=== PATIENT | female | born 1990 | race Caucasian/White ===

== ENCOUNTER 2017-06-27 11:45 | Emergency (ER) | payer OTHER ==
[2017-06-27 11:54] VITALS: BP 96/76
[2017-06-27 12:12] LABS: BILIRUBIN,URINE NEGATIVE (NEGATIVE); GLUCOSE, URINE (UA) NEGATIVE (NEGATIVE); KETONES,URINE (UA) NEGATIVE (NEGATIVE); LEUKOCYTE ESTERASE, URINE NEGATIVE (NEGATIVE); NITRITE,URINE NEGATIVE (NEGATIVE); OCCULT BLOOD,URINE NEGATIVE (NEGATIVE); PROTEIN,URINE NEGATIVE (NEGATIVE); UROBILINOGEN,URINE 0.2 (NORMAL) E.U./dL (NORMAL)
[2017-06-27 12:13] LABS: CLARITY,URINE CLEAR (CLEAR)
[2017-06-27 13:15] LABS: HCG UR QUAL NEGATIVE
--- NOTE | 2017-06-27 13:18 | ED Physician Documentation ---
PD HPI FEMALE - Stated complaint Stated Complaint: FEMALE /DIZZY,FEVER,CHEST CONGESTION - Chief complaint Chief Complaint: Abd Pain - History obtained from History obtained from: Patient - History of Present Illness Timing - onset: Other (She has had foul-smelling urine and vaginal discharge for the last week with mild pelvic pain. She is sexually active with a single partner for the last 2 months. She also has chest congestion and sinus drainage without fevers.) Review of Systems Constitutional: denies: Fever, Chills, Fatigue Nose: reports: Rhinorrhea / runny nose, Congestion, Sinus pressure / pain Throat: reports: Sore throat Respiratory: reports: Dyspnea, Cough GI: denies: Abdominal Pain PD PAST MEDICAL HISTORY - Present Medications Home Medications: Ambulatory Orders Medication Instructions Recorded Confirmed Albuterol Sulfate [Proventil Hfa 1 - 2 puffs IH Q4H PRN #1 06/27/17 Inhaler] [email or web address] Cetirizine HCl 10 mg PO DAILY 06/27/17 06/27/17 Metronidazole [Flagyl] 500 mg PO BID #14 tablet 06/27/17 Ondansetron [Ondansetron Odt] 4 mg PO TID PRN 06/27/17 06/27/17 guaiFENesin/CODEINE [Robitussin AC] 5 - 10 ml PO Q6H PRN #120 ml 06/27/17 - Allergies Allergies/Adverse Reactions: Allergies Allergy/AdvReac Type Severity Reaction Status Date / Time latex Allergy Rash Verified 06/27/17 11:53 PD ED PE NORMAL - Vitals Vital signs reviewed: Yes - General General: Alert and oriented X 3, No acute distress - HEENT HEENT: PERRL, Ears normal, Pharynx benign - Neck Neck: Supple, no meningeal sign, No bony TTP - Cardiac Cardiac: RRR, No murmur - Respiratory Respiratory: No respiratory distress, Other (Wheezy throughout without focal findings) - Abdomen Abdomen: Non tender - Female Female : [employer] present (Kayce Rivera RN), Other (Cervicitis but no cervical motion tenderness, moderate whitish to yellow discharge. No bimanual tenderness.) - Back Back: No CVA TTP, No spinal TTP - Neuro Neuro: Alert and oriented X 3, Normal speech - Psych Psych: Normal mood, Normal affect Results - Vitals Vitals: Vital Signs - 24 hr 06/27/17 11:49 Temperature 35.8 C L Heart Rate 52 L Respiratory 18 Rate Blood Pressure 96/76 O2 Saturation 100 Oxygen O2 Source Room air - Labs Labs: Microbiology 06/27/17 13:30 Wet Prep - Final Genital - Vaginal Laboratory Tests 06/27/17 06/27/17 11:55 11:55 Urine Color YELLOW Urine Clarity CLEAR Urine pH 6.0 Ur Specific [place] 1.015 1.015 Urine Protein NEGATIVE Urine Glucose (UA) NEGATIVE Urine Ketones NEGATIVE Urine Occult Blood NEGATIVE Urine Nitrite NEGATIVE Urine Bilirubin NEGATIVE Urine Urobilinogen 0.2 (NORMAL) Ur Leukocyte Esterase NEGATIVE Ur Microscopic Review NOT INDICATED Urine Culture Comments NOT INDICATED Urine HCG, Qual NEGATIVE Departure - Departure Disposition: Home, Self Care Clinical Impression: Bacterial vaginosis Condition: Good Record reviewed to determine appropriate education?: Yes Instructions: ED Vaginosis Bacterial Prescriptions: Albuterol Sulfate [Proventil Hfa Inhaler] 1 - 2 puffs IH Q4H PRN #1 [email or web address] PRN Reason: Cough guaiFENesin/CODEINE [Robitussin AC] 5 - 10 ml PO Q6H PRN #120 ml PRN Reason: Cough Metronidazole [Flagyl] 500 mg PO BID #14 tablet Comments: Call your doctor to arrange a follow-up appointment, make the next available appointment. In the interim, return anytime if worse or if new symptoms develop. If your STD tests are positive, we will call you in approximately 2-3 days time.
--- NOTE | 2017-06-27 18:38 | ED Physician Documentation ---
ED Addendum - Addendum Addendum: 06/27/17 18:38 Took call from pharmacy noting that she is on Suboxone for something and requested substitution for the codeine cough syrup and I told him to substitute Tessalon 200 mg [place], 1 p.o. every 6 as needed cough #20 no refills.
== END 2017-06-27 13:58 | disposition home or self-care (01) ==
LOC: ED 11:45
DX: N76.0 Acute vaginitis (principal); B96.89 Other specified bacterial agents as the cause of diseases classified elsewhere
CPT/HCPCS: 81001; 81003; 81025; 87086; 87210; 87220; 87491; 87591; 99283